=== PATIENT | male | born 1985 | race Caucasian/White ===

== ENCOUNTER 2016-10-28 18:56 | Emergency (ER) | payer OTHER ==
[~2016-10-28] VITALS: Ht 165.1 cm; Wt 89.6 kg
[2016-10-28 18:58] VITALS: Ht 165.1 cm; Wt 89.6 kg
[2016-10-28] MEDS ORDERED: LEVO150T PO (19:12)
[2016-10-28] MEDS ORDERED: VENL150C56 PO (19:12)
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
[2016-10-28] MEDS ORDERED: KETOROLAC TROMETHAMINE 10 MG TAB PO STA (20:50)
[2016-10-28] MEDS ORDERED: KETO10TA PO (20:56)
[2016-10-28] MEDS ORDERED: CYCL10TA6 PO (20:56)
[2016-10-28] MEDS ORDERED: FLEXERIL HOME PACK 10 MG VIAL PO ONE (21:00)
[2016-10-28] MEDS ORDERED: EMPTY 8 DRAM VIAL ONE (21:03)
[2016-10-28 21:08] VITALS: BP 124/81; PULSE 71; TEMP 36.9; O2SAT 94
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
== END 2016-10-28 21:09 | disposition home or self-care (01) ==
LOC: C.EDB 18:59 → C.EDD 21:09
DX: M54.2 Cervicalgia (principal); M54.6 Pain in thoracic spine; M25.511 Pain in right shoulder; V89.0XXA Person injured in unspecified motor-vehicle accident, nontraffic, initial encounter; J45.909 Unspecified asthma, uncomplicated; Z79.899 Other long term (current) drug therapy

== ENCOUNTER 2017-05-11 21:59 | Emergency (ER) | payer OTHER ==
[~2017-05-11] VITALS: Ht 165.1 cm; Wt 91.1 kg
[~2017-05-11 21:59] MED LIST: LEVO150T PO; VENL150C56 PO
[2017-05-11 22:09] VITALS: TEMP 37; Ht 165.1 cm; Wt 91.1 kg
[2017-05-11] MEDS ORDERED: KETOROLAC TROMETHAMINE 30 MG/ML VIAL IV STA (22:38)
[2017-05-11] MEDS ORDERED: LEVO175T PO (23:12)
[2017-05-12] MEDS ORDERED: OXYCODONE HCL IR 5 MG TAB (IMMEDIATE RELEASE) PO STA (02:01)
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
--- NOTE | 2017-05-12 02:31 | DIAGNOSTIC IMAGING REPORT ---
LEFT FOREARM 2 VIEWS ROUTINE HISTORY: 31 years-old Male ? FB for MRI COMPARISON: None available TECHNIQUE: Two views of the left forearm FINDINGS: 5 x 5 mm metallic density round foreign body is seen within the mid forearm soft tissues adjacent to the midshaft ulna. Additionally, there is a 1 mm metallic density foci within the lateral soft tissues of the mid forearm superficially. No fracture or dislocation. IMPRESSION: Two metallic density foci are present within the soft tissues of the mid forearm measuring up to 5 mm. The above report was generated using voice recognition software. It may contain grammatical, syntax or spelling errors. Electronically signed by: Juan Pennington M.D. 05/12/2017 2:30 AM Dictated Date/Time: 05/12/2017 2:25 AM
--- NOTE | 2017-05-12 04:35 | EMERGENCY ROOM VISIT NOTE ---
History First contact with patient: 22:36 Chief Complaint: FALL Stated Complaint: NECK/BACK PAIN FROM FALL History of Present Illness The patient is a 31 year old male who presents to the Emergency Room with complaints of neck and upper back pain after he fell yesterday moving furniture with his friend landing on the stairs on his upper back and states that he has some tingling in his left arm. Patient denies head injury, low back pain, weakness, numbness, loss of conscious, abdominal pain, chest pain, dyspnea, weakness. No prior fractures to this area. He tried Advil with no improvement of symptoms. Pain 8 out of 10. Worse with movement and better with rest. Review of Systems See HPI for pertinent positives & negatives. A total of 10 systems reviewed and were otherwise negative. Past Medical/Surgical History Asthma, hypothyroidism Social History Smoking Status: Light Tobacco Smoker Alcohol Use: occasionally Drug Use: none Current/Historical Medications Scheduled Levothyroxine Sodium (Synthroid), 175 MCG PO DAILY Physical Exam Vital Signs Date Time Temp Pulse Resp B/P (MAP) Pulse Ox O2 Delivery O2 Flow Rate FiO2 05/12/17 04:17 66 05/12/17 01:30 69 18 98/59 95 Room Air 05/11/17 22:09 37.0 95 20 130/86 96 Room Air Physical Exam VITALS: Vitals are noted on the nurse's note and reviewed by myself. Vital signs stable. GENERAL: Pleasant male, in no acute distress, nondiaphoretic, well-developed well-nourished. SKIN: The skin was without rashes, erythema, edema, or bruising. There is no tenting of the skin. Capillary reflex less than 2 seconds. HEAD: Normocephalic atraumatic. EARS: External auditory canals clear, tympanic membranes pearly cole without erythema or effusion bilaterally. EYES: Pupils equal round and reactive to light and accommodation. Conjunctivae without injection, sclerae without icterus. Extraocular movements intact. NOSE: Patent, turbinates without inflammation or discharge. MOUTH: Mucous membranes moist. Pharynx without erythema or exudate. Uvula midline. Airway patent. Tongue does not deviate. NECK: Supple without nuchal rigidity. No lymphadenopathy. No thyromegaly. Cervical spine is minimally tender C5 and 6. No JVD. HEART: Regular rate and rhythm without murmurs gallops or rubs. LUNGS: Clear to auscultation bilaterally without wheezes, rales or rhonchi. No dullness to percussion. No retractions or accessory muscle use. ABDOMEN: Positive bowel sounds x 4. Normal tympanic percussion. Soft, nontender, without masses or organomegaly. Altman sign negative. No guarding or rebound tenderness. MUSCULOSKELETAL: No muscle atrophy, erythema, or edema noted. Upper thoracic spine tender to palpation without step-offs. No lumbar tenderness. 5 over 5 strength throughout. NEURO: Patient was alert and oriented to person place and time. Normal sensation to light and sharp touch. No focal neurological deficits. Medical Decision & Procedures Medications Administered Medications (Trade) Dose Ordered Sig/Bettina Route Start Time Stop Time Status Last Admin Dose Admin Ketorolac Tromethamine (Toradol Inj) 30 mg NOW STAT IV 05/11/17 22:38 05/11/17 22:40 DC 05/11/17 23:15 30 MG Oxycodone HCl (Roxicodone Immediate Rel Tab) 5 mg NOW STAT PO 05/12/17 02:01 05/12/17 02:02 DC 05/12/17 02:21 5 MG Diphenhydramine HCl (Benadryl Cap) 50 mg STK-MED ONCE .ROUTE 05/12/17 04:14 05/12/17 04:15 DC 05/12/17 04:14 50 MG ED Course Prior records/ancillary studies reviewed. Triage Nursing notes reviewed. Additional history obtained from family. The patient's history was concerning for neck and back pain status post fall yesterday. Differential diagnosis: Etiologies such as ligamental injury, musculoskeletal, disc herniation, fracture , aortic disease, metastatic disease, cord compression, discitis, infection, renal colic, gastrointestinal, acute exacerbation of chronic back pain, sciatica , cauda equina, as well as others were entertained. Physical findings: As above. No focal neurologic findings noted. ER treatment provided: Toradol, OxyIR, c-collar On reassessment the patient felt better. Diagnostics interpreted by me: Imaging studies: T-spine was negative per stat radiology for CT imaging CT imaging of the C-spine was concerning for possible ligamental injury. MRI was then ordered MRI was negative for ligamental injury per radiology spinal cord is normal. Patient got slightly itchy after return from MRI. He states he is taking OxyIR in the past without difficulties. He was given Benadryl and symptoms resolved. He is advised not to take OxyIR until cleared by the family care doctor. This appears to be consistent with cervical and thoracic strain. Patient was neurovascularly and neurologically intact. He is well-appearing. No fracture on imaging as above. He was advised to take anti-inflammatories as needed and to follow-up with family care in a few days or here in the ER sooner for severe pain, numbness, tingling, worsening signs or symptoms or as needed. By the evaluation outlined above emergent etiologies such as fracture, aortic disease, metastatic disease, infection, renal colic, gastrointestinal, cord compression, cauda equina, as well as others were deemed relatively unlikely. The pt informed about the findings as listed above. All questions were answered and pleased with the treatment. Return instructions were outlined and the patient was discharged in stable condition. Referral: The patient was referred back to ortho spine and primary care physician for follow-up in 2 to 3 days for a recheck of the current condition. case reviewed with my Attending. Medical Decision As above Medication Reconcilliation Current Medication List: was personally reviewed by me Blood Pressure Screening Patient's blood pressure: Normal blood pressure Impression Primary Impression: Fall Additional Impressions: Cervical strain Thoracic myofascial strain Departure Information Dispostion Home / Self-Care Condition GOOD Referrals No Doctor, Assigned (PCP) Patient Instructions My [facility] Additional Instructions DO NOT drive, drink alcohol, operate machinery, or perform dangerous activities today. You were given medications in the ER that can affect your ability to safely function or operate a vehicle. Ibuprofen(Motrin, Advil) may be used for fever or pain. Use 600mg every six hours as needed. Take with food. Avoid using more than 2400mg in a 24 hour period. Do not use 2400mg per day for more than three consecutive days without physician direction. Prolonged inappropriate use can lead to stomach upset or ulcers. This medication can be taken if you need to drive, work, or perform activities which may be dangerous when taking narcotic pain medication. (AND/OR) Acetaminophen(Tylenol) may be used for fever or pain. Use 1000mg every six hours as needed. Avoid using more than 3000mg in a 24 hour period. This medication can be taken if you need to drive, work, or perform activities which may be dangerous when taking narcotic pain medication. Rest and avoid heavy lifting until your symptoms resolve and then gradually return to full activity. A good rule of thumb is if it hurts your back to perform a certain activity, then it should be avoided until you are healthy again. A heating pad, warm compresses, or a hot shower may help with tight muscles and can be done several times a day as needed. Continue current medications. Return to the ER immediately for any numbness, tingling, severe pain, loss of control of your bowels or bladder, inability to walk, or as needed. Follow up with your primary care physician within 3-5 days for a recheck of your current condition. Problem Qualifiers Primary Impression: Fall Encounter type: initial encounter Qualified Codes: W19.XXXA - Unspecified fall, initial encounter Additional Impressions: Cervical strain Encounter type: initial encounter Qualified Codes: S16.1XXA - Strain of muscle, fascia and tendon at neck level, initial encounter
[2017-05-12 04:59] VITALS: BP 118/81; PULSE 73; O2SAT 95
--- NOTE | 2017-05-12 06:58 | DIAGNOSTIC IMAGING REPORT ---
CT OF THE CERVICAL SPINE WITHOUT CONTRAST CLINICAL HISTORY: Neck pain following fall. COMPARISON STUDY: Cervical spine radiographs October 28, 2016. TECHNIQUE: Helical axial images of the cervical spine were obtained without IV contrast. Sagittal and coronal reconstructions were viewed. A dose lowering technique was utilized adhering to the principles of ALARA. FINDINGS: There is slight reversal of the normal cervical lordosis. There is no acute fracture. Mild multilevel disc space narrowing and anterior osteophytosis is noted. There is no acute fracture. There is no prevertebral edema. Slight asymmetry in the distance between the dens and the lateral masses of C1 is noted. IMPRESSION: 1. No acute cervical spine fracture or subluxation. 2. Slight asymmetry in the distance between the dens and the lateral masses of C1. This is likely within normal limits although ligamentous injury would be difficult to exclude by CT. Electronically signed by: Oskar Rios M.D. 05/12/2017 6:56 AM Dictated Date/Time: 05/12/2017 6:52 AM
--- NOTE | 2017-05-12 07:28 | DIAGNOSTIC IMAGING REPORT ---
CERVICAL WITHOUT CONTRAST CLINICAL HISTORY: 31 years-old Male presenting with neck pain with left arm tingling, slipped and fell on Monday, pain in the back from the chest level to neck, left arm numbness, no right-sided symptoms. TECHNIQUE: Multisequence, multiplanar MR imaging of the cervical spine was performed without the use of intravenous contrast. IV contrast: None. COMPARISON: Cervical spine CT performed the previous day. FINDINGS: Localizer images: Unremarkable. Straightening of normal cervical lordosis likely due to the reported presence of a cervical collar. Vertebral bodies maintain normal height, alignment, and bone marrow signal intensity. Intervertebral disc heights preserved, although disc desiccation from C3-4 through C6-7 noted. No significant degenerative change apart from disc desiccation. No edema or evidence of injury at the atlantoaxial articulation. No evidence of acute fracture or subluxation. Cervical spinal cord normal in morphology and signal intensity. Craniocervical junction normal. No prevertebral soft tissue swelling. Remaining paraspinal soft tissues within normal limits. IMPRESSION: No significant abnormality of the cervical spine. Electronically signed by: Favio Zimmerman M.D. 05/12/2017 7:27 AM Dictated Date/Time: 05/12/2017 7:21 AM
--- NOTE | 2017-05-12 08:59 | DIAGNOSTIC IMAGING REPORT ---
CT SCAN OF THE THORACIC SPINE WITHOUT IV CONTRAST CLINICAL HISTORY: Fall with thoracic back pain. COMPARISON STUDY: Radiographs of the thoracic spine dated 10/28/2016. TECHNIQUE: CT scan of the thoracic spine is performed from the lower cervical spine to the upper lumbar spine. Images are reviewed in the axial, sagittal, and coronal planes. IV contrast was not administered for this examination. A dose lowering technique was utilized adhering to the principles of ALARA. CT DOSE: 859.59 mGycm FINDINGS: The skeletal structures are well mineralized. There is no evidence of fracture or malalignment. Vertebral body height and alignment are maintained throughout the thoracic spine. The transverse and spinous processes are intact. No lytic or blastic lesion is seen. The intervertebral disc spaces are normal. There is no evidence of large disc herniation or central canal compromise. The partially imaged posterior ribs appear intact. The paraspinous soft tissues are within normal limits. The visualized lung parenchyma appears clear. IMPRESSION: There is no evidence of fracture or malalignment involving the thoracic spine. Dictated: 05/12/2017 7:25 AM Transcribed: 05/12/2017 8:59 AM [email or web address] Electronically signed by: Emerson Llanos M.D. 05/12/2017 9:22 AM Dictated Date/Time: 05/12/2017 7:25 AM
== END 2017-05-12 05:01 | disposition home or self-care (01) ==
LOC: C.EDB 22:00
DX: S16.1XXA Strain of muscle, fascia and tendon at neck level, initial encounter (principal); S29.012A Strain of muscle and tendon of back wall of thorax, initial encounter; W19.XXXA Unspecified fall, initial encounter; E03.9 Hypothyroidism, unspecified; J45.909 Unspecified asthma, uncomplicated; F17.200 Nicotine dependence, unspecified, uncomplicated; Z79.899 Other long term (current) drug therapy